=== PATIENT | male | born 1960 | race Caucasian/White ===

== ENCOUNTER → 2023-02-27 08:33 | Outpatient (CLI) | payer BC, SELFPAY ==
--- NOTE | ~2023-02-27 | XR_ITS ---
EXAMINATION: XR thoracic spine 3V DATE: 02/27/2023 08:56 INDICATION: Thoracic spondylosis without myelopathy or radiculopathy TECHNIQUE: One AP, lateral and lateral swimmer's views of the thoracic spine were obtained. COMPARISON: None. FINDINGS: 12 degrees lower thoracic dextrocurvature. Mild anterior wedging at T7 and T8. Multilevel moderate se verity disc height loss with small to moderate-sized degenerative endplate osteophytes throughout all but the uppermost thoracic spine. Elevation right hemidiaphragm. Visualized portion of the lungs are clear. Heart size within normal limits for AP technique. Dual lead pacemaker/AICD seen with leads pr ojecting over the expected locations of the right atrium and right ventricle. Cholecystectomy clips i n right upper quadrant. IMPRESSION: 1. Moderate thoracic spondylosis with mild lower thoracic dextrocurvature. Reviewed, dictated and finalized at location A.
== END ==
PROVIDERS: PCP Nurse Practitioner Family; Visit Provider Nurse Practitioner Family
DX: M47.814 Spondylosis without myelopathy or radiculopathy, thoracic region (principal)
CPT/HCPCS: 72072